=== PATIENT | male | born 1955 | race African-American/Black ===

== ENCOUNTER 2025-07-12 12:48 | Inpatient (IN) | payer MEDICARE ==
[~2025-07-12] VITALS: Ht 193 cm; Wt 74.8 kg
[2025-07-12 13:10] VITALS: O2SAT 99
[2025-07-12] MEDS ORDERED: MEMA5TAB42 PO (13:45)
[2025-07-12] MEDS ORDERED: AMLO-213 PO (13:45)
[2025-07-12] MEDS ORDERED: LOSA25TA27 PO (13:45)
[2025-07-12] MEDS ORDERED: DONE5TAB34 PO (13:45)
[2025-07-12 13:58] LABS: PLATELET COUNT (AUTO) 158 K/uL (150-450); RED BLOOD CELL COUNT(AUTO) 5.01 MIL/uL (4.5-6.0); RED CELL DISTRIBUTION WIDTH 13.7 % (11.5-15.0); WHITE BLOOD COUNT (AUTO) 4.3 K/uL (4.3-11.0)
[2025-07-12 14:04] LABS: APPEARANCE,URINE CLEAR (CLEAR); BLOOD, URINE NEGATIVE Ery/uL (NEGATIVE); LEUKOCYTE ESTERASE ,URINE NEGATIVE (NEGATIVE); NITRITE, URINE NEGATIVE (NEGATIVE); UGLUCOSE NEGATIVE (NEGATIVE)
[2025-07-12 14:09] LABS: ADD URINE CULTURE NO; SQUAMOUS EPITHELIAL CELL,UR Few /HPF (None Seen)
[2025-07-12 14:19] LABS: AMPHETAMINE, URINE NEGATIVE (NEGATIVE); BARBITURATE, URINE NEGATIVE (NEGATIVE); BENZODIAZEPINE, URINE NEGATIVE (NEGATIVE); CANNABINOID, URINE NEGATIVE (NEGATIVE); COCCAINE, URINE NEGATIVE (NEGATIVE); OPIATE, URINE NEGATIVE (NEGATIVE)
[2025-07-12 14:20] LABS: ALCOHOL, BLOOD < 3 mg/dL (0-10); ASPARTATE AMINOTRANSFERASE 23 U/L (15-37); CALCIUM, SERUM 9.4 mg/dL (8.5-10.1); CREATININE 1.6 mg/dL (0.6-1.3); SODIUM SERUM 141 mmol/L (136-145); TOTAL PROTEIN, SERUM 7.3 g/dL (6.4-8.2); UREA NITROGEN, BLOOD 19 mg/dL (7-18)
[2025-07-12] MEDS ORDERED: ACETAMINOPHEN 325 MG TABLET PO PRN (17:30)
[2025-07-12] MEDS ORDERED: MAG HYDROX/AL HYDROX/SIMETH 30 ML UDC PO PRN (17:30)
[2025-07-12] MEDS ORDERED: MAGNESIUM HYDROXIDE 30 ML UDC PO PRN (17:30)
[2025-07-12] MEDS ORDERED: LORAZEPAM 0.5 MG TABLET PO PRN ×2 (17:30)
[2025-07-12] MEDS ORDERED: ZOLPIDEM TARTRATE 5 MG TABLET PO PRN ×2 (17:30)
[2025-07-12 20:48] VITALS: BP 124/78; TEMP 98.3; O2SAT 97
[2025-07-13 08:00] VITALS: BP 155/99; TEMP 98.6; O2SAT 100
[2025-07-13] MEDS: AMLODIPINE BESYLATE 10 MG TABLET PO SCH (08:45)
[2025-07-13] MEDS: LOSARTAN POTASSIUM 25 MG TABLET PO SCH (08:45)
[2025-07-13] MEDS: DONEPEZIL 5 MG TABLET PO SCH (08:45)
[2025-07-13] MEDS: MEMANTINE HCL 5 MG TABLET PO SCH (08:45)
[2025-07-13 16:00] VITALS: BP 137/98; TEMP 98.6; O2SAT 97
[2025-07-13] MEDS: QUETIAPINE FUMARATE 25 MG TABLET PO SCH (17:14)
[2025-07-13 17:50] LABS: LDL 61 mg/dL (0-99)
[2025-07-13 17:52] LABS: ASPARTATE AMINOTRANSFERASE 21.0 U/L (15-37); CALCIUM, SERUM 8.8 mg/dL (8.5-10.1); CREATININE 1.4 mg/dL (0.6-1.3); SODIUM SERUM 143.0 mmol/L (136-145); TOTAL PROTEIN, SERUM 6.2 g/dL (6.4-8.2); UREA NITROGEN, BLOOD 17.0 mg/dL (7-18)
[2025-07-13 19:55] VITALS: BP 123/70; TEMP 98.5; O2SAT 100
[2025-07-13] MEDS: DIVALPROEX SODIUM 125 MG CAP.SPRINK PO SCH (21:20)
[2025-07-14 08:00] VITALS: BP 127/77; TEMP 98.1; O2SAT 97
[2025-07-14 11:44] LABS: APPEARANCE,URINE CLEAR (CLEAR); BLOOD, URINE NEGATIVE Ery/uL (NEGATIVE); LEUKOCYTE ESTERASE ,URINE NEGATIVE (NEGATIVE); NITRITE, URINE NEGATIVE (NEGATIVE); UGLUCOSE NEGATIVE (NEGATIVE)
[2025-07-14 12:56] LABS: CREATININE, URINE 132.7 MG/DL (30.0-125.0); URINE SODIUM, RANDOM 101.0 mmol/l (40-220); URINE TOTAL PROTEIN 37.4 mg/dL (0-11.9)
[2025-07-14 13:52] LABS: EOSINOPHIL,URINE None Seen
[2025-07-14 16:00] VITALS: BP 130/81; TEMP 97.8; O2SAT 99
[2025-07-14 17:21] LABS: PLATELET COUNT (AUTO) 153 K/uL (150-450); RED BLOOD CELL COUNT(AUTO) 4.45 MIL/uL (4.5-6.0); RED CELL DISTRIBUTION WIDTH 13.4 % (11.5-15.0); WHITE BLOOD COUNT (AUTO) 4.1 K/uL (4.3-11.0)
[2025-07-14 17:38] LABS: PHOSPHORUS 3.0 mg/dL (2.5-4.9)
[2025-07-14 17:40] LABS: CREATINE KINASE, TOTAL 90.0 U/L (39-308)
[2025-07-14 20:48] VITALS: BP 128/86; TEMP 98.1; O2SAT 99
[2025-07-15 08:00] VITALS: BP 149/98; TEMP 97.5; O2SAT 99
[2025-07-15 12:10] LABS: PTH, INTACT 30 pg/mL (15-65)
[2025-07-15 16:00] VITALS: BP 123/100; TEMP 98.7; O2SAT 98
[2025-07-15 21:04] VITALS: BP 135/99; TEMP 98.2; O2SAT 98
[2025-07-16 08:00] VITALS: BP 162/92; TEMP 98.1; O2SAT 95
[2025-07-16 16:00] VITALS: BP 124/68; TEMP 98.4; O2SAT 98
[2025-07-16 20:57] VITALS: BP 133/83; TEMP 98.3; O2SAT 97
[2025-07-17 08:00] VITALS: BP 145/78; TEMP 98.1; O2SAT 99
[2025-07-17 11:07] LABS: *SPE A/G RATIO 1.1 (0.7-1.7); *SPE ALBUMIN 3.0 g/dL (2.9-4.4); *SPE ALPHA-1-GLOBULIN 0.2 g/dL (0.0-0.4); *SPE ALPHA-2-GLOBULIN 0.7 g/dL (0.4-1.0); *SPE BETA GLOBULIN 0.8 g/dL (0.7-1.3); *SPE GLOBULIN, TOTAL 2.8 g/dL (2.2-3.9); *SPE M-SPIKE Not Observed g/dL (Not Observed); *SPE PROTEIN TOTAL 5.8 g/dL (6.0-8.5); *SPEGAMMA GLOBULIN 1.1 g/dL (0.4-1.8)
[2025-07-17 14:00] VITALS: BP 137/84; TEMP 97.1; O2SAT 95
[2025-07-17 20:32] VITALS: BP 140/80; TEMP 97.7; O2SAT 96
[2025-07-17 22:00] VITALS: BP 132/79; TEMP 97.8; O2SAT 98
[2025-07-18 08:00] VITALS: BP 168/101; TEMP 97.7; O2SAT 95
[2025-07-18 10:32] VITALS: BP 145/102
[2025-07-18] MEDS ORDERED: CLONIDINE HCL 0.1 MG TABLET PO PRN (11:00)
[2025-07-18 16:06] VITALS: BP 156/100; TEMP 97.9; O2SAT 97
[2025-07-18 20:53] VITALS: BP 138/93; TEMP 98; O2SAT 97
[2025-07-19 08:00] VITALS: BP 129/90; TEMP 97.7; O2SAT 96
[2025-07-19] MEDS: LOSARTAN POTASSIUM 25 MG TABLET PO SCH (08:49)
[2025-07-19 16:00] VITALS: BP 110/83; TEMP 98.8; O2SAT 97
[2025-07-19 21:04] VITALS: BP 105/70; TEMP 98.2; O2SAT 97
[2025-07-20 07:49] VITALS: BP 113/76; TEMP 97.8; O2SAT 98
[2025-07-20 15:41] VITALS: BP 134/75; TEMP 98.1; O2SAT 98
[2025-07-20 20:09] VITALS: BP 121/77; TEMP 98.1
[2025-07-21 08:00] VITALS: BP 136/101; TEMP 97.8; O2SAT 94
[2025-07-21 08:31] VITALS: BP 136/101
[2025-07-21] MEDS ORDERED: RISP0.5T74 PO (10:35)
[2025-07-21] MEDS ORDERED: DIVA125C2 PO (10:35)
== END 2025-07-21 11:05 | disposition home or self-care (01) | DRG 885 ==
LOC: ER 12:56 → GPS 16:32
PROVIDERS: ADMIT Psychiatry & Neurology Psychiatry; ATTEND Internal Medicine
DX: F29 Unspecified psychosis not due to a substance or known physiological condition (principal); F06.8 Other specified mental disorders due to known physiological condition; N18.9 Chronic kidney disease, unspecified; N17.9 Acute kidney failure, unspecified; F02.82 Dementia in other diseases classified elsewhere, unspecified severity, with psychotic disturbance; I12.9 Hypertensive chronic kidney disease with stage 1 through stage 4 chronic kidney disease, or unspecified chronic kidney disease; F39 Unspecified mood [affective] disorder; F02.83 Dementia in other diseases classified elsewhere, unspecified severity, with mood disturbance; I10 Essential (primary) hypertension; G30.9 Alzheimer's disease, unspecified; N40.0 Benign prostatic hyperplasia without lower urinary tract symptoms; E86.0 Dehydration; Z91.013 Allergy to seafood; Z79.899 Other long term (current) drug therapy
CPT/HCPCS: 36415; 76770-TC; 80048-TC; 80053-TC; 80061-TC; 80076-TC; 80164-TC; 81001; 82550-TC; 82570-TC; 83735-TC; 83970; 84100-TC; 84155; 84165; 84300-TC; 85025-TC; G0480